=== PATIENT | female | born 1990 | race Caucasian/White ===

== ENCOUNTER 2025-02-07 12:47 | Emergency (ER) | payer OTHER, SELFPAY ==
[2025-02-07 12:50] VITALS: BP 143/82; PULSE 96; RESP 18; TEMP 36.5; O2SAT 100
--- NOTE | 2025-02-07 13:39 | ED_ITS ---
HPI - Skin/Abscess/Foreign Bdy General Chief complaint: Skin/Abscess/Foreign Body Stated complaint: bite on neck Time Seen by Provider: 02/07/25 13:20 Source: patient, RN notes reviewed and old records reviewed Mode of arrival: ambulatory Limitations: no limitations History of Present Illness HPI narrative: 34 year old female presents to express care with complaints of noting red raised tender lesion to the left anterior neck area above clavicle area for the past one week duration. Area is noted to be 4cm X2cm with induration and warmth and tenderness to palpation, small forming pustule noted to center of red tissue area. On palpation small amount of white drainage noted and culture of drainage sent for analysis. Patient reports that she has been applying ice and taking Ibuprofen for her discomfort. Patient reports no known fevers or chill, originally states that she thought it was a mosquito bite but has progressing to painful swollen area with warmth. Patient reports that she did telehealth visit this morning and was prescribed an antibiotic but has not picked it up, Patient is breast feeding. MD complaint: abscess/boil Onset (ago): week(s) (1) Tetanus up to date: yes Location: neck (left neck region above clavicle) Severity scale (1-10): 8 Quality: burning and aching Pain Consistency: constant Exacerbating factors: palpation Treatments prior to arrival: other (Ibuprofen and ice) Related Data Home Medications ?Medication ?Instructions ?Recorded ?Confirmed ?Last Taken ?Type 02/07/25 Unknown History amoxicillin 875 mg tablet mg 02/07/25 Unknown History norethindrone (contraceptive) 0.35 mg 02/07/25 Unknow n History mg tablet (Jencycla) Allergies Allergy/AdvReac Type Severity Reaction Status Date / Time No Known Allergies Allergy Verified 02/07/25 13:00 Review of Systems Review of Systems: CONSTITUTIONAL: Denies fever, chills, or sweats. CARDIOVASCULAR: Denies chest pain, palpitations, or edema. RESPIRATORY: Denies cough or dyspnea. GASTROINTESTINAL: Denies abdominal pain, nausea, vomiting SKIN: Reports redness and swelling to raised lesion on left neck area above clavicle region Denies purulent drainage, positive for warmth and increased pain on palpation MUSCULOSKELETAL: Denies myalgia. NEUROLOGIC: Denies headache, numbness All systems reviewed & are unremarkable except as noted in HPI and below PMFSH Social History Social History (Updated 02/08/25 @ 10:13 by Sherine Trent NP) Smoking status: Never smoker Alcohol intake: former Alcohol use details: presently breast feeding Substance use type: does not use Living arrangements: with family Gender identity (if verbalized by the patient): Female Comments At time of signature, agree with nursing past medical, surgical, social and family history. There is no relevant family history pertinent to the presenting complaint Exam Narrative: GENERAL: Well-appearing, well-nourished, and in no acute distress. HEAD: Normocephalic, atraumatic. EYES: PERRLA and EOMI. ENT: Nares clear, no rhinorrhea or epistaxis. Mucous membranes moist. NECK: Supple.no lymphadenopathy CHEST: Clear to auscultation. No respiratory distress.SAO2 100% on room air HEART: Regular rate and rhythm. No murmur heard. Normal peripheral pulses. ABDOMEN: Soft, nontender, nondistended, normal active bowel sounds. EXTREMITIES: Normal range of motion. No edema. SKIN: Warm, dry. Erythema, induration, tenderness, warmth with area measuring 4cm X2cm with central bite area with drainage noted white and clear from area in palpation, wound culture sent NEURO: No focal deficits. Alert and oriented x3. Course Course Emergency Course: Patient is aware of diagnosis, understands and agrees to treatment plan. Anticipatory guidance given. Patient agrees to follow-up as directed and is aware of reasons to seek care at the emergency department. Portions of this record may have been created with voice recognition software Level of Care: Express Care Visit Vital Signs Vital signs: Vital Signs Temperature 36.5 C 02/07/25 12:50 Pulse Rate 96 02/07/25 12:50 Respiratory Rate 18 02/07/25 12:50 Blood Pressure 143/82 H 02/07/25 12:50 Pulse Oximetry 100 02/07/25 12:50 Oxygen Delivery Room Air 02/07/25 12:50 Temperature 36.5 C 02/07/25 12:50 Pulse Rate 96 02/07/25 12:50 Respiratory Rate 18 02/07/25 12:50 Blood Pressure 143/82 H 02/07/25 12:50 Pulse Oximetry 100 02/07/25 12:50 Oxygen Delivery Room Air 02/07/25 12:50 Reviewed MDM - Skin/Abscess/Foreign Bdy MDM Narrative Medical decision making narrative: Does not appear at this time to be erythema multiforme, bullous, SJS, TEN; no evidence at this time to suggest RMSF, endocarditis or Lyme disease; patient looks well, nontoxic and is tolerating oral intake; no neurologic signs or s ymptoms; no headache, photophobia or neck pain; afebrile; appropriate for initial outpatient treatment; discussed the importance of follow-up, patient agrees. Patient does not have history of penetrating trauma, laceration, blunt trauma, recent surgery, immunosuppression, malignancy, obesity, alcoholism, corticosteroid use. Question cellulitis, necrotizing soft tissue infection, abscess. Differential Diagnosis Differential diagnosis: Likely abscess of skin or subcutaneous tissue, cellulitis and insect bites Medical Records Attestation: I reviewed the patient's medical records. Lab Data Attestation: I reviewed the patient's lab results. Lab results narrative: wound culture sent Critical Care Time Critical Care Time Critical Care Time: No Discharge Plan Discharge Clinical Impression: Abscess of skin or subcutaneous tissue Qualifiers: Site of cutaneous abscess: neck Qualified Code(s): L02.11 - Cutaneous abscess of neck Patient Disposition: Home Condition: Stable Instructions: Antibiotic Form, Abscess (ED) Additional Instructions: Cleanse area with warm liquid dial soap twice daily and apply Bactroban watch for increasing infection--redness, swelling, drainage Tylenol or Ibuprofen afor any fever or pain follow up with PCP in 7-10 days for a wound check recheck if develop fever, chills, increasing symptom Go to the ER if your symptoms become worse of if ANY new symptoms develop Wound culture sent If your symptoms persist, change or worsen significantly before you can contact your personal physician then please, without delay, go to the emergency department for further evaluation. Follow-up with PCP in 7-10 days or sooner if needed Follow up with PCP soon in regards to your blood pressure which is elevated above threshold for referral. Blood pressure above 120/80 may indicate pre- hypertension. Antibiotic as ordered take all doses of oral medication Patient Language: Bruneian Prescriptions: New amoxicillin-pot clavulanate 875-125 mg tablet 1 tablet PO Q12H Qty: 20 0RF Rx Instructions: take all doses of oral medication take with daily probiotic No Action amoxicillin 875 mg tablet norethindrone (contraceptive) [Jencycla] 0.35 mg tablet Follow-up/Referrals: PHYSICIAN,SKILLS AUDITOR [Primary Care Provider, Internal Medicine] Time of Disposition: 13:54 Quality [place] Coma Scale Eyes: Open Verbal: Oriented and Alert Motor: Follows Commands [place] Coma Total Score: 15
--- OUTSIDE RECORDS SUMMARY | 2025-02-07 13:44 | XMS_ITS | Clinical Summary ---
Author Organization [facility] Address [address] [place] [address] Care Team Providers Care Asbestos Abatement Worker Name Role Phone No, Physician Primary Care Provider [phone] Allergies No known active allergies Medications vit 49-mgab-kppqj-d bar 27mg iron- 800 mcg-250 mg capsule Take by mouth Active docusate sodium (COLACE) 50 mg capsuleIndicati ons:constipatio n Take 1 capsule (50 mg total) by mouth 2 (two) times a day Active ibuprofen (ADVIL,MOTRIN) 600 mg tabletIndicatio ns:Cramps Take 1 tablet (600 mg total) by mouth every 6 (six) hours as needed for pain 30 tablet 1 5 Active docusate sodium (COLACE) 100 mg capsuleIndicati ons:constipatio n,Stool Softener Take 1 capsule (100 mg total) by mouth 2 (two) times a day 30 capsule 1 5 Active benzocaine-ment hoL (DERMOPLAST) 20-0.5 % aerosolIndicati ons:Minor Skin Wound Pain Apply 1 Application (1 spray total) topically as needed for other (perianal area for pain) 1 g 1 5 Active Active Problems Problem Noted Date Diagnosed Date Term 04/27/2024 Dysmenorrhea 05/22/2020 White coat syndrome without diagnosis of hyperte nsion 05/22/2020 Tobacco use 05/22/2020 Immunizations Immunization Administration Dates Next Due DT 12/20/2002 DTaP, Unspecified 06/03/1997, 4,1992,1992,0 1992 Hep B, Unspecified 1992,1992, 993 HiB 07/17/1993,1992,1992 ,1992 Influenza, Trivalent, IM (MDV) 01/18/2014 MMR 06/03/1997,07/17/1993 Polio, Unspecified 06/03/1997,10/16/1993, 993,1992 Tdap 10/07/2012 Family History Medical History Relation Name Comments Hyperlipidemia Father Hypertension Father Colon cancer Maternal Grandmother Hyperlipidemia Mother Hypertension Mother Relation Name Status Comments Father Maternal Grandmother Mother Social History Tobacco Use Types Packs/Day Years Used Date Smoking Tobacco: Former Cigarettes Vaping Quit: 09/2023 Smokeless Tobacco: Never Tobacco Cessation:Counseling Given: Not Answered Alcohol Use Standard Drinks/Week Comments Yes 0 (1 standard drink = 0.6 oz pur e alcohol) 3x weekly Vibesities Answer Date Recorded In the past 12 months has [employer], gas, oil, or water [employer] threatened to shut off services in your home? No 04/29/2024 Humiliation, Afraid, Rape, and Kick questionnair e Answer Date Recorded Within the last year, have y ou been afraid of your partner or ex-partner? No 04/29/2024 Within the last year, have y ou been humiliated or emotionally abused in other ways by your partner or ex-partner? No Within the last year, have y ou been kicked, hit, slapped, or otherwise physically hurt by your partner or ex-partner? No 04/29/2024 Within the last year, have y ou been raped or forced to have any kind of sexual activity by your partner or ex-partner? No 04/29/2024 Social Connection and Isolation Panel Answer Date Recorded In a typical week, how many times do you talk on the phone with family, friends, or neighbors? More than three times a week 04/27/2024 How often do you get togethe r with friends or relatives? Once a week 04/27/2024 How often do you attend chur ch or sikhism services? Never 04/27/2024 Do you belong to any clubs o r organizations such as uatsdin groups, unions, fraternal or athletic groups, or school groups? No 04/27/2024 How often do you attend meet ings of the clubs or organizations you belong to? Never 04/27/2024 Are you , , di vorced, , never , or living with a partner? 04/27/2024 AUDIT-C Answer Date Recorded Q1: How often do you have a drink containing alcohol? Never 04/27/2024 Q2: How many drinks containi ng alcohol do you have on a typical day when you are drinking? Patient does not drink Q3: How often do you have si x or more drinks on one occasion? Never 04/27/2024 Overall Financial Resource Strain (CARDIA) Answe r Date Recorded How hard is it for you to pa y for the very basics like food, housing, medical care, and heating? Not hard at all 04/27/2024 PHQ-2 Answer Date Recorded PHQ-2 Total Score (If total score is 3 or more points, staff should administer the PHQ-9) 0 04/27/2024 [facility] - Occupational Stress Questionnaire Answer Date Recorded Do you feel stress - tense, restless, nervous, or anxious, or unable to sleep at night because your mind is troubled all the time - these days? Not at all 04/27/2024 Exercise Vital Sign Answer Date Recorde d On average, how many days pe r week do you engage in moderate to strenuous exercise (like a brisk walk)? 0 days 04/27/2024 On average, how many minutes do you engage in exercise at this level? 0 min 04/27/2024 Hunger Vital Sign Answer Date Recorded Within the past 12 months, y ou worried that your food would run out before you got the money to buy more. Never true 04/27/20 24 Within the past 12 months, t he food you bought just didn't last and you didn't have money to get more. Never true 04/27/2024 PRAPARE - Transportation Answer Date Re corded In the past 12 months, has l ack of transportation kept you from medical appointments or from getting medications? No 03/30 In the past 12 months, has l ack of transportation kept you from meetings, work, or from getting things needed for daily living? No 04/27/2024 [place] Depression Scale Answer Date Recorded [place] Depression Scale Total 0 04/29/2024 The thought of harming myself has occurred to me . Never 04/29/2024 Housing Stability Vital Sign Answer Edmundo e Recorded In the last 12 months, was t here a time when you were not able to pay the mortgage or rent on time? No 04/27/2024 In the past 12 months, how m any times have you moved where you were living? 0 04/27/2024 At any time in the past 12 m [facility], were you homeless or living in a usp (including now)? No 04/27/2024 Personal Safety Answer Date Recorded Have you ever been in or are you currently in a harmful physical or emotional relationship or is someone making you feel afraid or unsafe? Denies 04/26/2024 Comments No Sex and Gender Information Value Date Recorded Sex Assigned at Not on file Legal Sex Female 5:31 PM PARTS ROOM ASSOCIATE Gender Identity Not on file Sexual Orientation Straight 05/18/2020 2: 17 PM PARTS ROOM ASSOCIATE Obstetrics History Para Term AB IAB SAB Ectopic Multiple Livin g Live Births 1 0 0 0 0 0 0 0 0 0 0 Date Outcome GA Total Labor Labor/2nd/3rd Weight Sex Type Anes PTL Yadira A1 A5 Name Clin Last Filed Vital Signs Vital Sign Reading Time Taken Comments Blood Pressure 133/88 04/30/2024 8:30 AM PARTS ROOM ASSOCIATE Pulse 99 04/30/2024 8:30 AM PARTS ROOM ASSOCIATE Temperature 36.7 C (98.1 F) 04/30/2024 8:30 AM PARTS ROOM ASSOCIATE Respiratory Rate 16 04/30/2024 8:30 AM PARTS ROOM ASSOCIATE Oxygen Saturation 97% 04/28/2024 9:52 AM PARTS ROOM ASSOCIATE Inhaled Oxygen Concentration - - Weight 109.3 kg (241 lb) 04/27/2024 8:33 AM PARTS ROOM ASSOCIATE Height 175.3 cm (5' 9) 04/27/2024 8:33 AM PARTS ROOM ASSOCIATE Body Mass Index 35.59 04/27/2024 8:33 AM PARTS ROOM ASSOCIATE Plan of Treatment Health Maintenance Due Date Last Done Comments Varicella Vaccines (1 of 2 - 13+ 2-dose series) 2005 Regular Well Visit/Exam 18-64 2010 HPV Vaccines (1 - 3-dose SCDM series) 2019 Covid-19 Vaccine (4 - 2024- season) 2024 03/02/2021, 05/09/2020, 04/22/2020 Influenza Vaccine (#1) 2024 01/18/2014 Depression Screening 04/29/2025 04/29/2024, 04/26/2024, 04/26/2024 Cervical Cancer Screening 06/10/2025 06/10/2024, 09/2022 DTaP/Tdap/Td Vaccine (9 - Td or Tdap) 01/19/2034 01/20/2024, 10/07/2012, 12/20/2002, Additional history exists Hepatitis B Screening Completed 1992 , 1992, 1992 Hepatitis C Screening Completed 10/14/2023 Pneumococcal vaccine <65 Aged Out No longer eligible based on patient's age to complete this topic Procedures Procedure Name Priority Date/Time Associated Diagnosis Comments PAP WITH REFLEX TO HIGH RISK HPV Routine 06/10/2024 12:09 PM PARTS ROOM ASSOCIATE HEPATITIS C ANTIBODY Routine 10/14/2023 10:32 AM CDT from Last 3 Months or Most Recently Relevant to Health Maintenance Results * Pap with reflex to High Risk HPV and Genotyping (Cytology Component) (06/10/2024 12:09 PM PARTS ROOM ASSOCIATE) Pap test 06/10/2024 12:0 9 PM PARTS ROOM ASSOCIATE 06/11/2024 12:09 PM PARTS ROOM ASSOCIATE Narrative 06/17/2024 3:20 PM PARTS ROOM ASSOCIATE [facility] Department of Pathology [address] [place] [address] Final Report Note to Patients: This report may contain a detailed description of human tissue sent by a health care provider to the laboratory for pathologic evaluation. The content of this report is essential for diagnosis and may provide important critical findings. This information may be unfamiliar to patients to review without a medical professional present. It is advised that the patient review this report in the presence of a health care provider who can answer questions and explain the details. Patient Name: NATI LEÓN Address: [address] [place] [id number] Gender: F : 1990 (Age: 34) Service: Location: N : [id number] Hospital #: [id number] Patient Type: SPECIMEN Taken: 06/10/2024 Received: 06/11/2024 Accessioned:: 06/14/2024 Reported: 06/17/2024 Physician(s): Jayden Britton M.D. Diagnosis: SOURCE OF SPECIMEN Imaged Thinprep Pap Test w/ Reflex HPV - [employer] Faculty Member Cytologic Material: STATEMENT OF ADEQUACY - Satisfactory for evaluation; endocervical/transformation zone component present GENERAL CATEGORIZATION: - Negative for intraepithelial lesion or malignancy ALDEN Clarke(ASCP) Report Electronically Reviewed and Signed Out By ALDEN Clarke(ASCP) 06/17/2024 15:20:32Specimen(s) Received: A: Imaged Thinprep Pap Test w/ Reflex HPV - [employer] Faculty Member Cytologic Material Clinical History: Menstrual History: The Pap test is a screening test used to aid in the detection of cervical cancer and its precursors. It should not be the sole means by which malignant and premalignant lesions are diagnosed. Both false negative and false positive results may occur. It also has poor sensitivity for the detection of endometrial lesions and should not be used to evaluate suspected endometrial abnormalities. For these reasons it is most important to obtain Pap tests at regular intervals. The performance characteristics of some immunohistochemical stains, fluorescence in-situ hybridization tests and immunophenotyping by flow cytometry cited in this report (if any) were determined by the Surgical Pathology Department at [facility] as part of an ongoing quality control lab tech program and in compliance with federally mandated regulations drawn from the Clinical Laboratory Improvement Act of 1988 (CLIA '88). Some of these tests rely on the use of analyte specific reagents and are subject to specific labeling requirements by the US Food and Drug Administration. Such diagnostic tests may only be performed in a facility that is certified by the Department of Health and Human Services as a high complexity laboratory under CLIA '88. The FDA has determined that such clearance or approval is not necessary. This test is used for clinical purposes. It should not be regarded as investigational or for research. Nevertheless, federal rules concerning the medical use of analyte specific reagents require that the following disclaimer be attached to the report: This test was developed and its performance characteristics determined by the Surgical Pathology Department [facility]. It has not been cleared or approved by the U. S. Food and Drug Administration. Duy Pro MD LAB CYTOLOGY ORDERABLE S Final Result * Hepatitis C antibody Blood (10/14/2023 10:32 AM CDT) Hep C Ab Nonreactive Nonreactive Comment: Interpretive Data Nonreactive: Antibodies to HCV not detected. Does NOT exclude the possibility of recent exposure to HCV. Equivocal: Equivocal for HCV antibodies. Supplemental molecular testing will be automatically performed to determine infection status in accordance with current CDC screening recommendations. Reactive: Positive for HCV antibodies. This may represent current or past HCV infection. Supplemental molecular testing will be automatically performed to determine current infection status in accordance with current CDC screening recommendations. Interpretive data was last revised on 2019. Testing performed by: [facility], [address] [place] [address], [place]., [address] Blood 10/14/2023 10:3 2 AM CDT 10/14/2023 3:52 PM CDT Macarena Rowan NP LAB MICROBIOLOGY - GENERAL OR DERABLES Final Result [facility] ([facility]) [facility] Department [place] [address] from Last 3 Months or Most Recently Relevant to Health Maintenance Insurance [employer] Address: [id number] [place] [phone] [employer] Address: [id number] [place] [phone] [employer] Address: [facility] [address] [place] [address] Advance Directives For more information, please contact: [phone] * Full Code (Latest Code Status on File) Date Activated Date Inactivated Comments 04/28/2024 9:52 AM 04/30/2024 5:57 PM * Full Code Date Activated Date Inactivated Comments 04/27/2024 6:35 AM 04/28/2024 9:52 AM Full CPR in case of cardiopulmonary arrest Care Teams Asbestos Abatement Worker Relationship Specialty Start Date End Date No, Physician PCP - General 03/21/20
--- OUTSIDE RECORDS SUMMARY | 2025-02-07 13:44 | XMS_ITS | Encounter Summary ---
Author Organization [facility] Address [address] [place] [address] Phone Care Team Providers Care Toxics Program Officer Name Role Phone No, Physician Primary Care Provider [phone] Encounter Details Date Type Department Care Team (Late st Contact Info) Description 04/05/2020 Telephone [facility] Medicine Obstetrics and Gynecology [address] [facility] 7th Floor [address] [place] [address] Jessica Calero Social History Tobacco Use Types Packs/Day Years Used Date Smoking Tobacco: Never Assessed Comments Unknown Sex and Gender Information Value Date Recorded Sex Assigned at Not on file Legal Sex Female 5:31 PM GEAR ROLLER Gender Identity Not on file Sexual Orientation Straight 05/18/2020 2: 17 PM GEAR ROLLER documented as of this encounter Plan of Treatment Not on file documented as of this encounter Visit Diagnoses Not on filedocumented in this encounter Additional Health Concerns Infection Onset Date Last Indicated Resolved Time COVID: Suspected 02/12/2022 02/12/2022 02/13/2022 3:05 AM CDT COVID: Suspected 02/12/2022 02/12/2022 02/13/2022 4:56 AM CDT COVID19 02/12/2022 02/12/2022 02/22/2022 3:05 AM CDT documented as of this encounter Care Teams Toxics Program Officer Relationship Specialty Start Date End Date No, Physician PCP - General 03/21/20 documented as of this encounter
== END 2025-02-07 13:59 | disposition home or self-care (01) ==
PROVIDERS: Emergency Provider Registered Nurse
DX: L02.11 Cutaneous abscess of neck (principal); B95.62 Methicillin resistant Staphylococcus aureus infection as the cause of diseases classified elsewhere
CPT/HCPCS: 87070; 87075; 87147; 87186; 87205; 99203; G0463